=== PATIENT | male | born 1995 | race Caucasian/White ===

== ENCOUNTER 2019-06-28 14:09 | Emergency (ER) | payer MEDICAID ==
[~2019-06-28] VITALS: Ht 157.5 cm; Wt 89.0 kg
[~2019-06-28 14:09] MED LIST: AZIT250T PO; D-ME473S18 PO; TYL500 PO
[2019-06-28 14:13] VITALS: Ht 157.5 cm; Wt 89.0 kg
[2019-06-28] MEDS ORDERED: SOD CHLORIDE 0.9% 1,000 ML IV STA (15:16)
--- NOTE | 2019-06-28 15:25 | ERD ---
ER Documentation Chief Complaint Chief Complaint LEFT PINKY/INDEX LAC. ETOX INTOXICATED HPI Is a 23-year-old male who is clinically intoxicated and stated that he been drinking with friends. Indicates that roughly 8 hours prior to arrival the patient cut his left hand on a broken beer bottle. The patient denied any blunt or penetrating head chest or abdominal trauma. He does not know when his last tetanus toxoid update was given. He is right-handed dominant. He stated there was a significant amount of bleeding. He put pressure on the wound and the bleeding had resolved. ROS All systems reviewed and are negative except as per history of present illness. Medications Home Meds Active Scripts Acetaminophen* (Tylenol*) 500 Mg Tab, 1000 MG PO Q4H PRN for PAIN AND OR E LEVATED TEMP for 3 Days, TAB Prov:STEFANIE BROWN 11/08/16 Dextromethorphan Hb-Promethazine Hcl (Promethazine DM Syrup) 473 Ml Syrup, 5 ML PO Q6H PRN for COUGH, #4 OZ Prov:STEFANIE BROWN 11/08/16 Azithromycin* (Zithromax*) 250 Mg Tablet, 250 MG PO .ZPACK DIRECTED, #6 TAB TAKE 500 MG (2 TABS) THE FIRST DAY THEN 250 MG (1 TAB) DAYS 2-5 Prov:STEFANIE BROWN 11/08/16 Allergies Allergies: Coded Allergies: No Known Allergies (Verified Allergy, Mild, 11/08/16) PMhx/Soc History of Surgery: No Anesthesia Reaction: No Hx Neurological Disorder: No Hx Respiratory Disorders: No Hx Cardiac Disorders: No Hx Psychiatric Problems: No Hx Miscellaneous Medical Probl: No Hx Alcohol Use: Yes Hx Substance Use: No Hx Tobacco Use: Yes Physical Exam Vitals Vital Signs Date Temp Pulse Resp B/P (MAP) Pulse Ox O2 O2 Flow FiO2 Time Delivery Rate 06/28/19 98.1 85 18 130/78 99 15:54 (95) 06/28/19 98.1 89 18 130/78 99 14:13 (95) Physical Exam Constitutional:Well-developed. Well-nourished. HEENT:Normocephalic. Atraumatic with no nasal septal hematoma. No hemotympanum..Pupils were equal round reactive to light. Moist mucous membranes.No tonsillar exudates. Neck: No nuchal rigidity. No lymphadenopathy. No posterior cervical spine tenderness or step-offs. Respiratory: Not using accessory muscles of respiration.Lungs were clear to auscultation bilaterally. No rhonchi. No rales. No wheezing. Cardiovascular: Regular rate regular rhythm.No murmurs. No rubs were appreciated.S1, S2 normal. Distal pulses are palpable 2+ bilaterally. GI: Abdomen was soft. Nontender. Non Distended. No pulsatile abdominal masses or bruits. No rebound. No guarding. Bowel sounds were present and normal. Muscle skeletal: Full range of motion of both the upper and lower extremities bilaterally.Normal muscle tone.No assymetrical calf tenderness or swelling. Skin: No petechia, no purpura. No lesions on the palms or the soles of the feet. No maculopapular rash. Superficial partial laceration over the distal phalanx ,palmar left index with oozing from the laceration site. No exposure of the flexor or extensor tendons NEURO: Patient was alert, awake, orientated x3.No facial droop. Gait observed and no ataxia. Speech was slurred and patient smelled of alcohol. no focal neurological deficits. Result Diagram: 06/28/19 1530 Results 24 hrs Laboratory Tests Test 06/28/19 15:30 White Blood Count 6.9 10^3/ul Red Blood Count 4.48 10^6/ul Hemoglobin 13.3 g/dl Hematocrit 39.5 % Mean Corpuscular Volume 88.2 fl Mean Corpuscular Hemoglobin 29.7 pg Mean Corpuscular Hemoglobin Concent 33.7 g/dl Red Cell Distribution Width 12.8 % Platelet Count 356 10^3/UL Mean Platelet Volume 9.4 fl Immature Granulocytes % 0.600 % Neutrophils % 54.8 % Lymphocytes % 32.9 % Monocytes % 9.8 % Eosinophils % 0.6 % Basophils % 1.3 % Nucleated Red Blood Cells % 0.0 /100WBC Immature Granulocytes # 0.040 10^3/ul Neutrophils # 3.8 10^3/ul Lymphocytes # 2.3 10^3/ul Monocytes # 0.7 10^3/ul Eosinophils # 0.0 10^3/ul Basophils # 0.1 10^3/ul Nucleated Red Blood Cells # 0.0 10^3/ul Current Medications Medications Dose Sig/Mark Start Time Status Last (Trade) Ordered Route PRN Stop Time Admin Dose Reason Admin Sodium 1,000 ml @ Q1H STAT 06/28/19 Cancel Chloride 1,000 mls/hr IV 15:16 06/28/19 16:15 Diphtheria/ 0.5 ml ONCE ONCE 06/28/19 DC 06/28/19 Tetanus/Acell IM* 15:30 06/28/19 15:37 Pertussis 15:31 (Adacel) Procedures/MDM This 23-year-old male that presented to the emergency department clinically intoxicated with a superficial laceration to his left hand. Radiographic imaging was to be obtained of his left hand as the patient was a poor historian however the patient eloped before completion of treatment. The patient was given a tetanus toxoid update. Ancillary laboratory work showed no severe anemia. The wound was irrigated using high-pressure normal saline. The laceration was visualized under direct light. There is no exposure of the subcutaneous fat. The wound was able to be Dermabond. Hemostasis controlled. Kerlix dressing was applied. Nursing staff had approached me and indicated that the patient eloped without completion of treatment. Departure Diagnosis: Primary Impression: Alcohol intoxication Complication of substance-induced condition: uncomplicated Qualified Codes: F10.920 - Alcohol use, unspecified with intoxication, uncomplicated Additional Impression: Finger laceration Encounter type: initial encounter Finger: index finger Damage to nail status: without damage Foreign body presence: without foreign body Laterality: left Qualified Codes: S61.211A - Laceration without foreign body of left index finger without damage to nail, initial encounter Condition: Fair MOLLY CHAN MD Jun 28, 2019 15:25
[2019-06-28] MEDS ORDERED: DIPHTH/TET/ACEL PERTUSS (ADULT) 0.5 ML VIAL IM* ONE (15:30)
[2019-06-28 15:54] VITALS: BP 130/78; PULSE 85; RESP 18
== END 2019-06-28 16:02 | disposition left against medical advice (07) ==
LOC: E/R 14:09
DX: S61.211A Laceration without foreign body of left index finger without damage to nail, initial encounter (principal); F10.920 Alcohol use, unspecified with intoxication, uncomplicated; W26.8XXA Contact with other sharp object(s), not elsewhere classified, initial encounter; Y92.9 Unspecified place or not applicable; Z23 Encounter for immunization; Z87.891 Personal history of nicotine dependence
CPT/HCPCS: 12001; 80053; 80307; 85025; 90471; Z7502; J7030